=== PATIENT | male | born 2005 | race Caucasian/White ===

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

== ENCOUNTER 2023-06-27 08:30 | Emergency (ER) | payer OTHER ==
[~2023-06-27] VITALS: Ht 185.4 cm; Wt 99.8 kg
[2023-06-27] MEDS ORDERED: MELO7.5 (08:54)
[2023-06-27] MEDS ORDERED: BUSP5 (08:54)
[2023-06-27] MEDS ORDERED: PROP10 (08:54)
[2023-06-27 09:20] LABS: BASOPHILS ABSOLUTE AUTO 0.04 K/mm3 (0.00-0.23); BASOPHILS PERCENT AUTO 1 % (0-2); EOSINOPHILS ABSOLUTE AUTO 0.16 K/mm3 (0.00-0.68); EOSINOPHILS PERCENT AUTO 2 % (0-6); Hemoglobin 15.7 g/dL (13.5-17.5); IMMATURE GRAN ABSOLUTE AUTO 0.01 K/mm3 (0.00-0.10); IMMATURE GRAN PERCENT AUTO 0 % (0-1); LYMPHOCYTES ABSOLUTE AUTO 2.65 K/mm3 (0.84-5.20); LYMPHOCYTES PERCENT AUTO 35 % (21-46); MONOCYTES ABSOLUTE AUTO 0.64 K/mm3 (0.16-1.47); MONOCYTES PERCENT AUTO 9 % (4-13); Mean Corpuscular HGB 28.4 pg (26.0-34.0); Mean Corpuscular HGB Conc 34.9 g/dL (31.5-36.5); Mean Corpuscular Volume 81 fL (80-100); Mean Platelet Volume 10.9 fL (9.1-12.4); NEUTROPHILS ABSOLUTE AUTO 3.99 K/mm3 (1.96-9.15); NEUTROPHILS PERCENT AUTO 53 % (41-73); Platelet Count 315 K/mm3 (150-400); RDW Standard Deviation 35.2 fL (35.1-46.3); Red Blood Cell Count 5.53 M/mm3 (4.30-5.90); White Blood Cell Count 7.49 K/mm3 (4.00-11.30)
[2023-06-27 09:42] LABS: Albumin, Blood 4.7 g/dL (3.4-5.0); Albumin/Globulin Ratio 1.2 (0.8-1.8); Bun/Creatinine Ratio 10.5 (12.0-20.0); Creatinine, Blood 0.76 mg/dL (0.60-1.20); Potassium, Blood 4.1 mmol/L (3.5-5.5); Total Protein, Blood 8.7 g/dL (6.4-8.2)
[2023-06-27 11:48] VITALS: BP 150/96
[2023-06-27] MEDS ORDERED: IBUP800 PO (11:49)
== END 2023-06-27 12:03 | disposition home or self-care (01) ==
LOC: ER 08:30
PROVIDERS: Emergency Medicine
DX: K80.70 Calculus of gallbladder and bile duct without cholecystitis without obstruction (principal); I10 Essential (primary) hypertension
CPT/HCPCS: 76705; 80053; 83690; 85025; 99284-25

== ENCOUNTER 2023-11-02 06:50 | Day surgery (SDC) | payer OTHER ==
[~2023-11-02] VITALS: Ht 182.9 cm; Wt 108.9 kg
[2023-11-02] VITALS (11 sets, daily range): BP systolic 139–158; BP diastolic 72–99
[~2023-11-02 06:50] MED LIST: BUSP5 PO; BUSPIRONE HCL30 M1 PO; IBUP800 PO; Inderal40 MG PO; MELO7.5; PROP10 PO
[2023-11-02] MEDS ORDERED: CefOXitin Sodium 2,000 MG in NS 50 ML IV SCH (07:05)
[2023-11-02] MEDS ORDERED: Lactated Ringer's 1,000 ML IV SCH (07:05)
[2023-11-02] MEDS ORDERED: propofoL 100 ML IV ONE (07:40)
[2023-11-02] MEDS ORDERED: Ondansetron HCl 2 MG / ML 2ML Vial ONE (07:44)
[2023-11-02] MEDS ORDERED: Ketorolac Tromethamine 30mg Vial ONE (07:44)
[2023-11-02] MEDS ORDERED: Rocuronium Bromide 10 MG/ML 5ML Injection IV ONE (07:44)
[2023-11-02] MEDS ORDERED: Esmolol HCL 10 MG/ML 10ML VIAL ONE (07:44)
[2023-11-02] MEDS ORDERED: Dexamethasone Sod Phos 10 MG/ML 1ML VIAL ONE (07:44)
[2023-11-02] MEDS ORDERED: propofoL 20 ML IV ONE ×2 (07:45→09:23)
[2023-11-02] MEDS ORDERED: FentaNYL Citrate 50 MCG/ML 2 ML Injection ONE (07:46)
[2023-11-02] MEDS ORDERED: Midazolam HCl 1MG / ML 2ML Vial ONE (07:46)
[2023-11-02] MEDS ORDERED: Bupivacaine 0.5% HCl 5 MG/ML 30MLVIAL ONE (07:47)
[2023-11-02] MEDS ORDERED: Neostigmine Methylsulfate 5MG/5ML SYR ONE (08:21)
[2023-11-02] MEDS ORDERED: Glycopyrrolate 0.2 MG/ML 5ML VIAL ONE (08:21)
[2023-11-02] MEDS ORDERED: Sugammadex Sodium 200 MG/2ML SDV (100 MG/ML) ONE (08:45)
[2023-11-02] MEDS ORDERED: SuccINYLCHOLINE Chloride 100 MG/5 ML 5MLSYR ONE (08:45)
[2023-11-02] MEDS ORDERED: HYDROcodone 5-APAP 325 TAB PO PRN (09:30)
[2023-11-02] MEDS ORDERED: HYDROmorphone HCl/Pf 1MG SYR ONE ×2 (09:52→10:06)
--- NOTE | 2023-11-02 11:03 | NUR ---
Discharge instructions reviewed with patient. Patient verbalizes understanding. Copy given to patient to take home. Prescription given to tour bus driver/guide. Dressings c/d/i. Patient States Post-Procedure ride home has been arranged. Discharged via wheelchair to private car for ride home.
== END 2023-11-02 11:00 | disposition home or self-care (01) ==
LOC: ORSCMMR 06:50 → ORD 08:00 → ORSCMMR 08:00
PROVIDERS: Surgery
PROC: 0FT44ZZ Resection of Gallbladder, Percutaneous Endoscopic Approach (ICD-10-PCS; principal; 2023-11-02 08:00)
DX: K80.12 Calculus of gallbladder with acute and chronic cholecystitis without obstruction (principal); I10 Essential (primary) hypertension; E66.9 Obesity, unspecified; Z68.32 Body mass index [BMI] 32.0-32.9, adult; Z79.899 Other long term (current) drug therapy
CPT/HCPCS: 88304; A9270; J0330; J0694; J1100; J1170; J1885; J2250; J2405; J2704; J2710; J3010; J7120